=== PATIENT | male | born 1975 | race Caucasian/White ===

== ENCOUNTER 2018-02-19 16:52 | Emergency (ER) | payer BC ==
--- NOTE | 2018-02-19 18:47 | EDM.PDOC ---
ED HPI GENERAL MEDICAL PROBLEM - General Chief Complaint: Respiratory Problem Stated Complaint: SHORT OF BREATH Time Seen by Provider: 02/19/18 18:42 Source of Information: Reports: Patient History Limitations: Reports: No Limitations - History of Present Illness INITIAL COMMENTS - FREE TEXT/NARRATIVE: Presents with 3-6 months of shortness of breath and non productive cough. Has been using 's Albuterol and Symbicort inhalers but is running out. Has not followed up with a primary physician regarding this. Has no formal diagnosis of asthma or copd. Patient has a 40 pack-year smoking history. Denies chest pain. No cardiac history. Severity: Moderate - Related Data Allergies Allergy/AdvReac Type Severity Reaction Status Date / Time No Known Allergies Allergy Verified 02/19/18 18:32 Home Meds: Home Meds Albuterol [Ventolin HFA] 2 puff INH Q4H PRN #1 inhaler 02/19/18 [Rx] predniSONE [Prednisone] 60 mg PO DAILY 4 Days #12 tablet 02/19/18 [Rx] Past Medical History - Past Health History Medical/Surgical History: Denies Medical/Surgical History Social & Family History - Tobacco Use Smoking Status *Q: Current Every Day Smoker Tobacco Use Within Last Twelve Months: Cigarettes Years of Tobacco use: 20 Packs/Tins Daily: 2 ED ROS GENERAL - Review of Systems Review Of Systems: ROS reveals no pertinent complaints other than HPI. ED EXAM, GENERAL - Physical Exam Exam: See Below Exam Limited By: No Limitations General Appearance: Alert, WD/WN, No Apparent Distress Nose: Normal Inspection Throat/Mouth: No Airway Compromise Head: Atraumatic, Normocephalic Neck: Normal Inspection Respiratory/Chest: No Respiratory Distress, Decreased Breath Sounds, Wheezing Cardiovascular: Regular Rate, Rhythm, No Edema, No Murmur GI/Abdominal: No Distention Rectal (Males) Exam: Deferred Back Exam: Full Range of Motion Extremities: No Pedal Edema Neurological: Alert, Oriented, No Motor/Sensory Deficits Psychiatric: Normal Affect, Normal Mood Skin Exam: Warm, Dry, Intact Course - Vital Signs Last Recorded V/S: Last Vital Signs Temp 36.9 C 02/19/18 16:55 Pulse 81 02/19/18 16:55 Resp 16 02/19/18 16:55 BP 130/87 02/19/18 16:55 Pulse Ox 97 02/19/18 16:55 - Orders/Labs/Meds Orders: Active Orders 24 hr Category Date Time Status RT Aerosol Therapy [RC] ASDIRECTED Care 02/19/18 18:42 Active CXR [Chest 2V] [CR] Stat Exams 02/19/18 18:41 Taken predniSONE Med 02/19/18 19:24 Once 60 mg PO ONETIME ONE Meds: Medications Discontinued Medications Generic Name Dose Route Start Last Admin Trade Name Freq PRN Reason Stop Dose Admin Albuterol 2.5 mg 02/19/18 18:41 02/19/18 18:53 Proventil Neb Soln NEB 02/19/18 18:42 2.5 mg ONETIME ONE Administration - Radiology Interpretation Free Text/Narrative:: CXR: NAD - Re-Assessments/Exams Free Text/Narrative Re-Assessment/Exam: 02/19/18 19:24 Patient feels better. Lungs: mild expiratory wheeze with good aeration on re- examination Departure - Departure Time of Disposition: 19:25 Disposition: Home, Self-Care 01 Condition: Good Clinical Impression: Bronchospasm - Discharge Information *PRESCRIPTION DRUG MONITORING PROGRAM REVIEWED*: No *COPY OF PRESCRIPTION DRUG MONITORING REPORT IN PATIENT YANNICK: Not Applicable Prescriptions: Albuterol [Ventolin HFA] 2 puff INH Q4H PRN #1 inhaler PRN Reason: Shortness Of Breath predniSONE [Prednisone] 60 mg PO DAILY 4 Days #12 tablet Referrals: PCP,None [Primary Care Provider] - Forms: ED Department Discharge Additional Instructions: Fill prescriptions for Prednisone and Albuterol and take as directed. Quit smoking. Establish with a primary physician in 2-3 days. Return to the ER if symptoms worsen. - My Orders Last 24 Hours: My Active Orders 02/19/18 18:41 CXR [Chest 2V] [CR] Stat 02/19/18 18:42 RT Aerosol Therapy [RC] ASDIRECTED 02/19/18 19:24 predniSONE 60 mg PO ONETIME ONE - Assessment/Plan Last 24 Hours: My Active Orders 02/19/18 18:41 CXR [Chest 2V] [CR] Stat 02/19/18 18:42 RT Aerosol Therapy [RC] ASDIRECTED 02/19/18 19:24 predniSONE 60 mg PO ONETIME ONE
[2018-02-19] MEDS: Albuterol 0.083% 2.5 MG/3 ML Neb Soln NEB ONE (18:53)
[2018-02-19] MEDS: predniSONE 20 MG Tab PO ONE (19:32)
--- NOTE | 2018-02-24 08:20 | CR ---
INDICATION: Shortness of breath. CHEST, PA AND LATERAL VIEWS: FINDINGS: No comparison studies are available. The lungs are hyperinflated. The patient appears to have underlying emphysema. There is some asymmetry that is identified in the appearance of the right suprahilar chest, compared to the left side. This may simply represent normal bronchovascular structures. It is possible that there is a small area of pneumonia or atelectasis. I cannot exclude that there is not an underlying mass or adenopathy in this location, however. I would suggest a CT scan chest with IV contrast to further evaluate. No other definite nodule or mass. The heart size and pulmonary vasculature are normal. There is a mild scoliosis deformity of the thoracic spine, curved convex right, with some degenerative end plate change and spurring. IMPRESSION: Almost certain underlying emphysema. Asymmetry right suprahilar lung, compared to left side. Again, this may turnstile attendant to be normal. I still would do a CT scan of the chest to further evaluate, however. MTDD
== END 2018-02-19 19:41 | disposition home or self-care (01) ==
LOC: FB.ED 16:52
DX: J98.01 Acute bronchospasm (principal); F17.210 Nicotine dependence, cigarettes, uncomplicated; Z79.899 Other long term (current) drug therapy
CPT/HCPCS: 71046; 94640; 99285; A9270-GY